=== PATIENT | female | born 2000 | race Caucasian/White ===

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

== ENCOUNTER → 2022-05-15 | Outpatient (CLI) | payer BC ==
--- NOTE | 2022-05-15 18:18 | CT ---
EXAMINATION TYPE: CT orbits w con CT DLP: 378.0 mGycm, Automated exposure control for dose reduction was used. DATE OF EXAM: 05/15/2022 6:11 PM COMPARISON: CT brain 09/24/2020. 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 No IV or oral contrast was u tilized. Findings: Orbital Contents: * Globes: Normal. * Preseptal Tissues: Normal. * Intraconal Structures: Normal. * Extraconal Structures and Lacrimal Glands: Normal. * Orbital Goldvein: Normal. Sella Turcica and Cavernous Sinuses: The sella turcica and cavernous sinus regions are intact and sym metric. Visualized Brain Parenchyma: Normal. Paranasal Sinuses and Surrounding Structures: Mild paranasal sinus disease. Mucosal thickening worse in the right maxillary sinus. Mastoid air cells are clear. Other: Soft tissues are within normal limits. IMPRESSION: No evidence of orbital irregularity or mass. The globes and optic nerves appear symmetric without evidence for inflammation. MRI orbit would be mo re sensitive for this diagnosis with IV contrast.
== END | disposition home or self-care (01) ==
LOC: RADCTMAIN 17:13
PROVIDERS: ATTEND Ophthalmology
DX: H46.13 Retrobulbar neuritis, bilateral (principal)
CPT/HCPCS: 70481; Q9967

== ENCOUNTER → 2022-10-10 | Outpatient (CLI) | payer BC ==
--- NOTE | 2022-10-10 08:38 | USB ---
Reason for Exam: Clinical finding. Prior Study Comparison: Baseline Ultrasound. Findings: The whole breast of both breasts, the axilla of both breasts and the retroareolar of both breasts were scanned. Imaged: Ultrasound imaging of: Bilateral, All 4 quadrants, the retroareolar region and axilla. No evidence for organizing fluid collection or mass. Overall Assessment: Negative, BI-RAD 1 Management: Screening Mammogram of both breasts at age 41. Clinical management for patient's symptoms. A clinical breast exam by your physician is recommended on an annual basis and results should be correlated with mammographic findings. This exam should not preclude additional follow-up of suspicious palpable abnormalities. Results were given to the patient verbally at the time of exam. Electronically signed and approved by: Chapincito Lang DO
== END | disposition home or self-care (01) ==
LOC: RADUSWWP 08:00
PROVIDERS: ATTEND Family Medicine
DX: N64.4 Mastodynia (principal)

== ENCOUNTER → 2023-05-28 | Outpatient (CLI) | payer BC | END | disposition home or self-care (01) | LOC: LABWHC1 15:01 | PROVIDERS: ATTEND Dermatology | DX: L42 Pityriasis rosea (principal) | CPT/HCPCS: 36415; 86780 ==